=== PATIENT | female | born 1975 | race Two or more races ===

== ENCOUNTER 2021-02-17 12:10 | Emergency (ER) | payer BC ==
[~2021-02-17] VITALS: Ht 154.9 cm; Wt 58.1 kg
--- NOTE | 2021-02-17 12:29 | NUR ---
[email or web address], medical screening exam in progress
[2021-02-17] MEDS ORDERED: ESCI5TAB PO (12:34)
[2021-02-17] MEDS ORDERED: PROP20TA7 PO (12:34)
[2021-02-17 13:05] LABS: *BILIRUBIN,URIN NEGATIVE (NEGATIVE); *BLOOD, URINE 3+ (NEGATIVE); *COLOR,URINE LIGHT YELLOW (YELLOW); *KETONES,URINE NEGATIVE (NEGATIVE); *UROBILINOGEN,URINE 0.2 E.U./dl (NORMAL); LEUKOCYTE ESTERASE ,URINE NEGATIVE (NEGATIVE); NITRITE, URINE NEGATIVE (NEGATIVE); UGLUCOSE NEGATIVE (NEGATIVE)
[2021-02-17 13:06] LABS: *URINE HCG, QUAL NEG (NEGATIVE)
[2021-02-17 13:08] LABS: *CLARITY,URINE SLIGHTLY HAZY (CLEAR)
--- NOTE | 2021-02-17 13:50 | NUR ---
Patient is for discharge but no COVID test was ordered, MD notified.
[2021-02-17] MEDS ORDERED: BENZ-13 PO (13:53)
[2021-02-17 14:13] LABS: BACTERIA,URINE NONE SEEN /HPF (NONE SEEN); SQUAMOUS EPITHELIAL CELL,UR FEW /HPF (NONE SEEN); WBC,URINE 0-3 /HPF (0-3)
[2021-02-17 14:14] LABS: MUCUS,URINE FEW /LPF (0-FEW); URINE AMORPHOUS URATE FEW /HPF
--- NOTE | 2021-02-17 14:26 | NUR ---
Patient is resting comfortably on gurney, NAD, pending COVID test's result@this time.
--- NOTE | 2021-02-17 15:00 | NUR ---
Patient discharged to home in stable condition with brisk steady gait. Written and verbal after care instructions given to patient. Patient verbalized understanding and compliance of instructions. Stressed follow up with primary doctor or return to ER for worsening s/s.
== END 2021-02-17 15:00 | disposition home or self-care (01) ==
LOC: ER 12:10
DX: R05 Cough (principal); Z20.822 Contact with and (suspected) exposure to COVID-19; F41.9 Anxiety disorder, unspecified; R03.0 Elevated blood-pressure reading, without diagnosis of hypertension
CPT/HCPCS: 71046; 84703; 93005; A4663